=== PATIENT | male | born 1970 | race Caucasian/White ===

== ENCOUNTER 2018-08-23 16:06 | Emergency (ER) | payer OTHER ==
[2018-08-23 16:14] VITALS: TEMP 98.5; BMI 27.3
--- NOTE | 2018-08-23 16:14 | PDOC ---
Rapid Medical Evaluation Time Seen by Provider: 08/23/18 16:09 Medical Evaluation: 08/23/18 16:10 Pt presents to the ED for dizziness starting today. Pt states he was working when all of a sudden he got dizzy. Also admits to weakness. Denies LOC, vomiting , fever Exam: No gross neurodeficits. ambulatory Orders: Labs; IV insert Pt to proceed to ED for further evaluation Discharge Disposition - Diagnosis Dizziness - Referrals - Patient Instructions - Post Discharge Activity
[2018-08-23 16:34] LABS: EOS % 3.1 % (0-4.5); HEMATOCRIT 42.2 % (35.4-49)
[2018-08-23 16:40] LABS: URINE APPEARANCE CLEAR; URINE BILIRUBIN NEGATIVE (<2.0 mg/dL); URINE COLOR STRAW; URINE GLUCOSE (UA) NEGATIVE (NEGATIVE); URINE KETONE NEGATIVE (NEGATIVE); URINE LEUK ESTERASE TRACE (NEGATIVE); URINE NITRITE NEGATIVE (NEGATIVE); URINE PROTEIN NEGATIVE (NEGATIVE); URINE UROBILINOGEN NEGATIVE mg/dL (0.2-1.0)
[2018-08-23 16:48] LABS: URINE MUCUS RARE
[2018-08-23] MEDS ORDERED: SODIUM CHLORIDE 1,000 ML IV STA (16:55)
--- NOTE | 2018-08-23 17:03 | PDOC ---
Attending Attestation - Resident Resident Name: Virgil Santos - ED Attending Attestation I have performed the following: I have examined & evaluated the patient, The case was reviewed & discussed with the resident, I agree w/resident's findings & plan, Exceptions are as noted - HPI HPI: 08/23/18 17:01 48y M no knonw pmhx presents with feeling weak and tired since this afternoon. The patient states he felt ok the past few days and this morning, sometime after lunch he started feeling alittle lightheaded (non vertiginous) and generally weak. Denies any focal complaints including headache, vertigo, vision changes, numbness/tingling/weaknes, n/v, fever/chills, cp, sob, avilez, abd pain, back pain, leg swelling, hemoptysis. no recent travel or known sick contacts. 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 HEAD: Normocephalic, atraumatic. EYES: extraocular movements intact, sclera anicteric, conjunctiva clear. ENT: Normal voice, Moist mucous membranes. NECK: Normal range of motion, supple LUNGS: Breath sounds equal, clear to auscultation bilaterally. No wheezes, no rhonchi, no rales. HEART: Regular rate and rhythm, normal S1 and S2 without murmur, rub or gallop. ABDOMEN: Soft, nontender, normoactive bowel sounds. No guarding, no rebound. . No CVA tenderness EXTREMITIES: Normal range of motion, no edema. NEUROLOGICAL: No facial assymetry, Normal speech, moving all 4 extremities spontaneously and symmetrically PSYCH: Normal mood, normal affect. SKIN: Warm, Dry, normal turgor, - Medical Decision Making 08/23/18 17:43 ddx - viral syndrome, metabolic derangement, anemia will ck basic labs fluids for hyration if labs neg will reasses and will dc with pmd fu if feeling better 08/23/18 17:49 The patient's labs were reviewed there unremarkable there is +1 hematuria noted in his urine will first to primary care for further evaluation Heart Score/ECG Review - ECG Impressions Comment:: 08/23/18 17:45 Twelve-lead EKG was performed and reviewed by me. There is normal sinus rhythm with a normal rate. rate of [address] changes suggestive of acute ischemia
[2018-08-23 17:04] LABS: ALBUMIN 4.3 g/dl (3.4-5.0); ALK PHOS 111 U/L (45-117); ANION GAP 9 MMOL/L (8-16); BILIRUBIN,TOTAL 0.4 mg/dL (0.2-1); BLOOD UREA NITROGEN 13 mg/dL (7-18); CALCIUM 9.3 mg/dL (8.5-10.1); CHLORIDE 106 mmol/L (98-107); CO2 26 mmol/L (21-32); CREATININE 0.7 mg/dL (0.55-1.3); GLUCOSE,RANDOM 121 mg/dL (74-106); POTASSIUM 3.6 mmol/L (3.5-5.1); SGOT/AST 31 U/L (15-37); SGPT/ALT 45 U/L (13-61); SODIUM 141 mmol/L (136-145); TOT PROT 7.3 g/dl (6.4-8.2)
[2018-08-23 17:16] LABS: LYMPH % 23.1 % (8-40); MCHC 35.5 g/dl (32.0-35.9); MEAN CELL VOLUME 90.1 fl (80-96); MEAN PLT VOLUME 8.5 fl (7.5-11.1); MONO % 8.2 % (3.8-10.2); NEUT % 64.6 % (42.8-82.8); PLATELET COUNT 299 K/MM3 (134-434); RBC 4.68 M/mm3 (4.00-5.60); RDW 13.1 % (11.9-15.9); WHITE BLOOD COUNT 7.5 K/mm3 (4.0-10.0)
--- NOTE | 2018-08-23 17:25 | PDOC ---
History of Present Illness - General Chief Complaint: Lightheaded Stated Complaint: Lightheaded Time Seen by Provider: 08/23/18 16:09 History Source: Patient Exam Limitations: No Limitations - History of Present Illness Initial Comments: 08/23/18 17:17 Patient is a 48M with no known medical history here today complaining of lightheadedness that started at work today. He states that he felt dizzy and weak. Denies chest pain and shortness of breath. Denies leg swelling, abdominal pain, nausea, vomiting, fevers, chills. Denies leg swelling, history of blood clots, focal weakness. Past History - Past Medical History Allergies/Adverse Reactions: Allergies Allergy/AdvReac Type Severity Reaction Status Date / Time No Known Allergies Allergy Verified 08/23/18 16:10 COPD: No Other medical history: DENIES - Suicide/Smoking/Psychosocial Hx Smoking History: Current every day smoker Have you smoked in the past 12 months: Yes Number of Cigarettes Smoked Daily: 4 Information on smoking cessation initiated: No Review of Systems - Review of Systems Comments:: 08/23/18 17:20 GENERAL/CONSTITUTIONAL: No fever or chills. No weakness. HEAD, EYES, EARS, NOSE AND THROAT: No change in vision. No sore throat. CARDIOVASCULAR: No chest pain or shortness of breath RESPIRATORY: No cough, wheezing, or hemoptysis. GASTROINTESTINAL: No nausea, vomiting, diarrhea or constipation. GENITOURINARY: No dysuria, frequency, or change in urination. MUSCULOSKELETAL: No joint or muscle swelling or pain. No neck or back pain. SKIN: No rash NEUROLOGIC: No headache, vertigo, loss of consciousness, +weakness ENDOCRINE: No increased thirst. No abnormal weight change HEMATOLOGIC/LYMPHATIC: No anemia, easy bleeding, or history of blood clots. ALLERGIC/IMMUNOLOGIC: No hives or skin allergy. *Physical Exam - Vital Signs Last Vital Signs Temp Pulse Resp BP Pulse Ox 98.5 F 91 H 18 134/79 98 08/23/18 16:10 08/23/18 16:10 08/23/18 16:10 08/23/18 16:10 08/23/18 16:10 - Physical Exam Comments: 08/23/18 17:20 GENERAL: Awake, alert, and fully oriented, in no acute distress HEAD: No signs of trauma, normocephalic, atraumatic EYES: PERRLA, EOMI, sclera anicteric, conjunctiva clear ENT: Auricles normal inspection, hearing grossly normal, nares patent, oropharynx clear without exudates. Moist mucosa NECK: Normal ROM, supple, no lymphadenopathy, JVD, or masses LUNGS: No distress, speaks full sentences, clear to auscultation bilaterally HEART: Regular rate and rhythm, normal S1 and S2, no murmurs, rubs or gallops, peripheral pulses normal and equal bilaterally. ABDOMEN: Soft, nontender, normoactive bowel sounds. No guarding, no rebound. No masses EXTREMITIES: Normal inspection, Normal range of motion, no edema. No clubbing or cyanosis. NEUROLOGICAL: Cranial nerves II through XII grossly intact. Normal speech, normal gait, no focal sensorimotor deficits SKIN: Warm, Dry, normal turgor, no rashes or lesions noted. Moderate Sedation - Procedure Monitoring Vital Signs: Procedure Monitoring Vital Signs Temperature 98.5 F 08/23/18 16:10 Pulse Rate 91 H 08/23/18 16:10 Respiratory Rate 18 08/23/18 16:10 Blood Pressure 134/79 08/23/18 16:10 O2 Sat by Pulse Oximetry (%) 98 08/23/18 16:10 ED Treatment Course - LABORATORY CBC & Chemistry Diagram: 08/23/18 16:21 08/23/18 16:21 - ADDITIONAL ORDERS Additional order review: Laboratory Results 08/23/18 08/23/18 16:25 16:21 Sodium 141 Potassium 3.6 Chloride 106 Carbon Dioxide 26 Anion Gap 9 BUN 13 Creatinine 0.7 Creat Clearance w eGFR > 60 Random Glucose 121 H Calcium 9.3 Total Bilirubin 0.4 AST 31 ALT 45 Alkaline Phosphatase 111 Total Protein 7.3 Albumin 4.3 Urine Color Straw Urine Appearance Clear Urine pH 6.0 Ur Specific [place] 1.014 Urine Protein Negative Urine Glucose (UA) Negative Urine Ketones Negative Urine Blood 1+ H Urine Nitrite Negative Urine Bilirubin Negative Urine Urobilinogen Negative Ur Leukocyte Esterase Trace Urine WBC (Auto) 1 Urine RBC (Auto) 3 Urine Mucus Rare - RADIOLOGY Radiology Studies Ordered: Category Date Time Status CHEST PA & LAT [RAD] Stat Radiology 08/23/18 16:54 Ordered Medical Decision Making - Medical Decision Making 08/23/18 17:20 Patient is 48M with no significant medical history here today with near syncope. No signs and symptoms of stroke. Normal neuro exam. No significant cardiac risk factors. 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 CO poisoning considered, no one else is sick, cars aren't on in garage. Will set up with PCP. DDx includes, but is not limited to: arrhythmia , acs, rhabdo, vasovagal. 08/23/18 17:26 CXR clear. CBC, CMP normal. Trop pending, EKG pending. 08/23/18 21:58 Trop negative. Given PCP follow up. *DC/Admit/Observation/Transfer Diagnosis at time of Disposition: Lightheadedness - Discharge Dispostion Disposition: HOME Condition at time of disposition: Good Decision to Admit order: No - Referrals - Patient Instructions Printed Discharge Instructions: DI for Dizziness-Nonvertigo Additional Instructions: Please go to your primary care appointment on Wednesday. Please return if you have any new, worsening or increasing symptoms, especially fever, chest pain, and shortness of breath. Por favor, vaya a mena fara de atencin primaria el viernes. Regrese si tiene sntomas nuevos, que empeoran o aumentan, especialmente fiebre , dolor de pecho y dificultad para respirar. - Post Discharge Activity
[2018-08-23 18:42] VITALS: BP 123/81; PULSE 75
--- NOTE | 2018-08-24 09:52 | EKG ---
Test Reason : Blood Pressure : / mmHG Vent. Rate : 076 BPM Atrial Rate : 076 BPM P-R Int : 154 ms QRS Dur : 100 ms QT Int : 376 ms P-R-T Axes : 057 014 034 degrees QTc Int : 423 ms NORMAL SINUS RHYTHM INCOMPLETE RIGHT BUNDLE BRANCH BLOCK BORDERLINE ECG NO PREVIOUS ECGS AVAILABLE Confirmed by BAIRON AMOR, DONAL ([id number]) on 08/24/2018 9:52:38 AM Referred By: Confirmed By:DONAL WADDELL MD
== END 2018-08-23 18:50 | disposition home or self-care (01) ==
LOC: JER 16:06
PROC: 3E0337Z Introduction of Electrolytic and Water Balance Substance into Peripheral Vein, Percutaneous Approach (ICD-10-PCS; principal; 2018-08-23)
DX: R42 Dizziness and giddiness (principal)
CPT/HCPCS: 36415; 71046-TC-FY; 80053; 81003; 81015; 82550; 82553; 84484; 85025; 93005; 93010; 96360; 99284-25; J7030

== ENCOUNTER 2024-06-16 11:38 | Emergency (ER) | payer OTHER ==
[2024-06-16 11:54] VITALS: TEMP 98.1; BMI 25.8
[2024-06-16 12:43] VITALS: RESP 18
[2024-06-16 12:53] LABS: BASO % 1.3 % (0-2.0); EOS % 5.4 % (0-4.5); HEMATOCRIT 40.6 % (35.4-49); HEMOGLOBIN 14.1 GM/dL (11.7-16.9); LYMPH % 24.8 % (8-40); MCH 31.8 pg (25.7-33.7); MCHC 34.7 g/dl (32.0-35.9); MEAN CELL VOLUME 91.5 fl (80-96); MONO % 9.6 % (3.8-10.2); NEUT % 58.9 % (42.8-82.8); PLATELET COUNT 241 10^3/uL (134-434); RBC 4.44 M/mm3 (4.00-5.60); RDW 13.2 % (11.9-15.9); WHITE BLOOD COUNT 6.7 K/mm3 (4.0-10.0)
[2024-06-16 13:10] LABS: POTASSIUM 4.1 mmol/L (3.5-5.1)
[2024-06-16 13:12] LABS: CALCIUM 9.1 mg/dL (8.5-10.1)
[2024-06-16 13:13] LABS: BLOOD UREA NITROGEN 17.2 mg/dL (7-18); MAGNESIUM 2.1 mg/dL (1.8-2.4)
[2024-06-16 13:16] LABS: CREATININE 0.6 mg/dL (0.55-1.3)
[2024-06-16 13:18] LABS: BILIRUBIN,TOTAL 0.6 mg/dL (0.2-1); TOT PROT 6.7 g/dl (6.4-8.2)
[2024-06-16 15:01] LABS: VENOUS BASE EXCESS 0.7 mmol/L (-2-2); VENOUS O2 SATURATION 95.4 % (70-80); VENOUS PCO2 40.1 mmHg (38-52); VENOUS PH 7.416 (7.310-7.410)
[2024-06-16 15:26] VITALS: BP 107/74; PULSE 59
== END 2024-06-16 17:14 | disposition home or self-care (01) ==
LOC: JER 11:38
DX: R06.02 Shortness of breath (principal); R07.9 Chest pain, unspecified; R42 Dizziness and giddiness; Z20.822 Contact with and (suspected) exposure to COVID-19
CPT/HCPCS: 0241U-QW; 36415; 71046-TC-FY; 80053; 82803; 83735; 84484; 85025; 93005; 93010; 99285-25